=== PATIENT | male | born 1965 | race Asian ===

== ENCOUNTER 2017-09-03 22:08 | Inpatient (IN) | payer OTHER ==
[~2017-09-03] VITALS: Ht 177.8 cm; Wt 76.2 kg
[~2017-09-03 22:08] MED LIST: NORCO
[2017-09-04] MEDS ORDERED: CEFTRIAXONE 1 G PREMIX 50 ML IV ONE (00:45)
[2017-09-04] MEDS ORDERED: SODIUM CHLORIDE 0.9% 1000ML BAG (SEPSIS BOLUS) IV ONE (00:45)
[2017-09-04] MEDS ORDERED: KETOROLAC 15MG/ML VIAL IV ONE (01:00)
[2017-09-04 01:19] LABS: BASOPHILS % 0.5 % (0.0-2.0); EOSINOPHILS % 0.7 % (0.0-5.0); HEMATOCRIT. 30.4 % (42.0-52.0); HEMOGLOBIN. 9.7 g/dL (14.0-18.0); LYMPHOCYTES % 19.6 % (20.0-50.0); MEAN CORPUSCULAR HEMOGLOBIN 24.9 pg (28.0-32.0); MEAN CORPUSCULAR VOLUME 78.3 fL (80.0-94.0); MEAN PLATELET VOLUME 6.5 fl (7.4-10.4); MONOCYTES % 7.4 % (2.0-8.0); NEUTROPHILS % 71.8 % (40.0-76.0); PLATELET 518 x1000/uL (130-400); RED BLOOD CELL COUNT 3.89 mill/uL (4.7-6.1); RED CELL DISTRIBUTION WIDTH 17.4 % (11.6-14.6)
[2017-09-04 01:23] LABS: CHLORIDE 104 mEq/L (98-107)
[2017-09-04 01:24] LABS: INR 1.2
[2017-09-04 01:57] LABS: CLARITY URINE TURBID (CLEAR); COLOR URINE YELLOW (YELLOW); KETONES URINE NEGATIVE (NEGATIVE); LEUKOCYTE ESTERASE URINE 3+ (NEGATIVE); NITRITE URINE POSITIVE (NEGATIVE); OCCULT BLOOD URINE NEGATIVE (NEGATIVE); PH URINE >=9.0 (4.5-8.0); PROTEIN URINE 2+ (NEGATIVE); SPECIFIC GRAVITY URINE 1.022 (1.005-1.030)
[2017-09-04 03:50] VITALS: BP 97/61
[2017-09-04 04:40] VITALS: BP 128/79
[2017-09-04] MEDS ORDERED: PIPERACILLIN/TAZ 3.375G PREMIX 50 ML IV SCH (05:15)
[2017-09-04] MEDS ORDERED: ACETAMINOPHEN 650MG/20.3ML UDC PO PRN (05:15)
[2017-09-04] MEDS ORDERED: ONDANSETRON HCL 4MG/2ML VIAL IV PRN (05:15)
[2017-09-04] MEDS ORDERED: CLONIDINE 0.1MG TABLET PO PRN (05:15)
[2017-09-04] MEDS ORDERED: ONDANSETRON 4MG ODT PO PRN (05:45)
[2017-09-04] MEDS: MORPHINE SULFATE 4 MG/ML CPJ (NOT FOR IM USE) IV PRN ×3 (05:46→19:51)
[2017-09-04] MEDS ORDERED: VANCOMYCIN 1250MG in DEXTROSE 5% WATER 250ML IV SCH (06:00)
[2017-09-04] MEDS: DEXT 5%/0.45% NACL KCL 20MEQ/L 1,000 ML IV SCH ×2 (06:34→18:06)
[2017-09-04] MEDS ORDERED: DIPHENHYDRAMINE 50MG/ML VIAL IM PRN (07:00)
[2017-09-04 08:00] VITALS: BP 102/66
[2017-09-04] MEDS: PIPERACILLIN/TAZ 3.375G PREMIX 50 ML IV SCH ×2 (08:55→15:03)
[2017-09-04] MEDS ORDERED: ENOXAPARIN 40MG/0.4ML SYR SUBCUT SCH (09:00)
[2017-09-04 09:59] LABS: BASOPHILS % 0.7 % (0.0-2.0); EOSINOPHILS % 0.7 % (0.0-5.0); HEMOGLOBIN. 9.2 g/dL (14.0-18.0); LYMPHOCYTES % 19.5 % (20.0-50.0); MEAN CORPUSCULAR HEMOGLOBIN 25.1 pg (28.0-32.0); MEAN CORPUSCULAR VOLUME 79.4 fL (80.0-94.0); MEAN PLATELET VOLUME 6.4 fl (7.4-10.4); MONOCYTES % 5.2 % (2.0-8.0); NEUTROPHILS % 73.9 % (40.0-76.0); PLATELET 446 x1000/uL (130-400); RED BLOOD CELL COUNT 3.65 mill/uL (4.7-6.1); RED CELL DISTRIBUTION WIDTH 16.9 % (11.6-14.6)
[2017-09-04 10:46] LABS: CHLORIDE 110 mEq/L (98-107)
[2017-09-04] MEDS: INSULIN LISPRO 100 UNITS/ML SUBCUT SCH ×2 (12:50→17:50)
[2017-09-04] MEDS: BLOOD SUGAR DIAGNOSTIC STRIP TEST SCH ×2 (12:58→17:54)
[2017-09-04] MEDS ORDERED: HYDROCODONE/ACETAMINOPHEN 5/325MG TABLET PO PRN (13:00)
[2017-09-04] MEDS ORDERED: DEXTROSE 50% WATER 50ML SYRINGE IV PRN (13:00)
[2017-09-04] MEDS ORDERED: ACETAMINOPHEN 325MG TABLET PO PRN (13:00)
[2017-09-04] MEDS ORDERED: SODIUM CHLORIDE 0.9% 100 ML IV ONE (13:30)
[2017-09-04] MEDS ORDERED: SODIUM CHLORIDE 0.9% 1,000 ML IV ONE (13:39)
[2017-09-04] MEDS: MIDODRINE HCL 5MG TABLET PO SCH ×2 (13:48→18:04)
[2017-09-04] MEDS ORDERED: VANCOMYCIN 1 G PREMIX 200 ML IV SCH (14:00)
[2017-09-04 16:00] VITALS: BP 96/52
[2017-09-04 19:57] VITALS: BP 115/60
[2017-09-04 20:03] VITALS: BP 115/60
== END 2017-09-04 20:53 | disposition short-term general hospital (02) | DRG 698 ==
LOC: ER 22:38 → 6EST 09-04 02:07 → EDBEDREQSVC 09-04 02:11 → EDBEDREQ 09-04 02:11 → EDBEDREQTM 09-04 02:11 → ENRESERV 09-04 02:16
PROVIDERS: ADMIT Internal Medicine; ATTEND Internal Medicine
DX: T83.518A Infection and inflammatory reaction due to other urinary catheter, initial encounter (principal); A41.9 Sepsis, unspecified organism; E43 Unspecified severe protein-calorie malnutrition; G82.20 Paraplegia, unspecified; E11.9 Type 2 diabetes mellitus without complications; D64.9 Anemia, unspecified; N12 Tubulo-interstitial nephritis, not specified as acute or chronic; I10 Essential (primary) hypertension; Y83.8 Other surgical procedures as the cause of abnormal reaction of the patient, or of later complication, without mention of misadventure at the time of the procedure; F32.9 Major depressive disorder, single episode, unspecified; Y92.89 Other specified places as the place of occurrence of the external cause; Z79.899 Other long term (current) drug therapy; Z93.3 Colostomy status; Z68.24 Body mass index [BMI] 24.0-24.9, adult
CPT/HCPCS: 36415; 71045; 80048; 80053; 81003; 82962; 83605; 85025; 85610; 85651; 87040; 87086; 87186; 93005; 93970; 96365; 96375; 99285; J0696; J1650; J1885; J2270; J2543; J3370; J7030; J7040; J7060

== ENCOUNTER 2018-02-20 12:06 | Emergency (ER) | payer OTHER ==
[~2018-02-20] VITALS: Ht 175.3 cm; Wt 85.0 kg
[2018-02-20] MEDS ORDERED: MORPHINE SULFATE 4 MG/ML CPJ (NOT FOR IM USE) IV STA (14:42)
[2018-02-20 16:22] LABS: BASOPHILS % 0.6 % (0.0-2.0); EOSINOPHILS % 1.9 % (0.0-5.0); HEMATOCRIT. 40.9 % (42.0-52.0); HEMOGLOBIN. 13.5 g/dL (14.0-18.0); LYMPHOCYTES % 37.8 % (20.0-50.0); MEAN CORPUSCULAR HEMOGLOBIN 28.9 pg (28.0-32.0); MEAN CORPUSCULAR VOLUME 87.5 fL (80.0-94.0); MEAN PLATELET VOLUME 6.9 fl (7.4-10.4); MONOCYTES % 7.7 % (2.0-8.0); PLATELET 293 x1000/uL (130-400); RED BLOOD CELL COUNT 4.67 mill/uL (4.7-6.1); RED CELL DISTRIBUTION WIDTH 16.4 % (11.6-14.6)
[2018-02-20 16:30] LABS: CHLORIDE 105 mEq/L (98-107)
[2018-02-20 17:00] LABS: CLARITY URINE CLEAR (CLEAR); COLOR URINE YELLOW (YELLOW); KETONES URINE NEGATIVE (NEGATIVE); LEUKOCYTE ESTERASE URINE 3+ (NEGATIVE); NITRITE URINE POSITIVE (NEGATIVE); OCCULT BLOOD URINE TRACE (NEGATIVE); PROTEIN URINE NEGATIVE (NEGATIVE); SPECIFIC GRAVITY URINE 1.018 (1.005-1.030); UROBILINOGEN URINE 0.2 E.U./dL (0.2-1.0)
[2018-02-20] MEDS ORDERED: CEFTRIAXONE 1 G PREMIX 50 ML IV ONE (17:15)
[2018-02-20] MEDS ORDERED: MORPHINE SULFATE 4 MG/ML CPJ (NOT FOR IM USE) IV ONE (17:30)
[2018-02-20 20:13] VITALS: BP 105/71
== END 2018-02-20 20:15 | disposition home or self-care (01) ==
LOC: ER 12:06
DX: N39.0 Urinary tract infection, site not specified (principal); Z93.3 Colostomy status
CPT/HCPCS: 36415; 71045; 80053; 81003; 85025; 87077; 87086; 87186; 96365; 96375; 96376; 99285; J0696; J2270

== ENCOUNTER 2018-03-07 19:44 | Inpatient (IN) | payer OTHER ==
[~2018-03-07] VITALS: Ht 175.3 cm; Wt 70.8 kg
[2018-03-07] MEDS ORDERED: PIPERACILLIN/TAZ 3.375G PREMIX 50 ML IV ONE (20:45)
[2018-03-07] MEDS ORDERED: VANCOMYCIN 1 G PREMIX 200 ML IV ONE (20:45)
[2018-03-07] MEDS ORDERED: HYDROCODONE/ACETAMINOPHEN 5/325MG TABLET PO ONE (20:45)
[2018-03-07] MEDS ORDERED: SODIUM CHLORIDE 0.9% 1000ML BAG (SEPSIS BOLUS) IV ONE (20:45)
[2018-03-07 21:04] LABS: CHLORIDE 99 mEq/L (98-107)
[2018-03-07 21:14] LABS: CLARITY URINE CLEAR (CLEAR); COLOR URINE YELLOW (YELLOW); KETONES URINE NEGATIVE (NEGATIVE); LEUKOCYTE ESTERASE URINE 3+ (NEGATIVE); NITRITE URINE POSITIVE (NEGATIVE); OCCULT BLOOD URINE NEGATIVE (NEGATIVE); PH URINE 8.5 (4.5-8.0); PROTEIN URINE NEGATIVE (NEGATIVE); SPECIFIC GRAVITY URINE 1.015 (1.005-1.030)
[2018-03-07 22:08] LABS: BASOPHILS % 0.1 % (0.0-2.0); EOSINOPHILS % 0.1 % (0.0-5.0); HEMATOCRIT. 41.7 % (42.0-52.0); HEMOGLOBIN. 13.8 g/dL (14.0-18.0); LYMPHOCYTES % 12.1 % (20.0-50.0); MEAN CORPUSCULAR HEMOGLOBIN 29.1 pg (28.0-32.0); MEAN CORPUSCULAR VOLUME 87.7 fL (80.0-94.0); MEAN PLATELET VOLUME 6.9 fl (7.4-10.4); MONOCYTES % 3.4 % (2.0-8.0); NEUTROPHILS % 84.3 % (40.0-76.0); PLATELET 380 x1000/uL (130-400); RED BLOOD CELL COUNT 4.76 mill/uL (4.7-6.1); RED CELL DISTRIBUTION WIDTH 15.2 % (11.6-14.6)
[2018-03-08] VITALS: BP 98/68
[2018-03-08] MEDS ORDERED: GUAIFENESIN 200MG/10ML SUGAR FREE UDC PO PRN (01:45)
[2018-03-08] MEDS ORDERED: MAGNESIUM/ALUMINUM HYDROXIDE/SIMETHICONE 30ML UDC PO PRN (01:45)
[2018-03-08] MEDS ORDERED: ACETAMINOPHEN 325MG TABLET PO PRN (01:45)
[2018-03-08] MEDS ORDERED: LORAZEPAM 2MG/ML CPJ IV PRN (01:45)
[2018-03-08] MEDS ORDERED: NA PHOS,M-B/NA PHOS,DI-BA ENEMA 118ML PR PRN (01:45)
[2018-03-08] MEDS ORDERED: ONDANSETRON HCL 4MG/2ML INJ IV PRN (01:45)
[2018-03-08] MEDS ORDERED: DOCUSATE SODIUM 100MG CAPSULE PO PRN (01:45)
[2018-03-08] MEDS ORDERED: DIPHENHYDRAMINE 50MG/ML VIAL IV PRN (01:45)
[2018-03-08] MEDS ORDERED: VANCOMYCIN 1 G PREMIX 200 ML IV SCH (01:45)
[2018-03-08] MEDS ORDERED: CLONIDINE 0.1MG TABLET PO PRN (01:45)
[2018-03-08] MEDS ORDERED: IPRATROPIUM/ALBUTEROL 0.5-3(2.5)MG/3ML NEB INH PRN (01:45)
[2018-03-08] MEDS ORDERED: HYDROCODONE/ACETAMINOPHEN 10/325MG TABLET PO PRN (01:45)
[2018-03-08] MEDS: HYDROMORPHONE HCL/PF 2MG/ML CPJ IV PRN ×5 (02:17→20:28)
[2018-03-08] MEDS ORDERED: VANCOMYCIN 1500MG in DEXTROSE 5% WATER 250ML IV SCH (03:00)
[2018-03-08] MEDS: SODIUM CHLORIDE 0.45% 1,000 ML IV SCH ×2 (03:22→15:07)
[2018-03-08] MEDS: SODIUM CHLORIDE 0.9% INJ 3ML FLUSH IVF SCH ×3 (05:48→20:30)
[2018-03-08 05:59] VITALS: BP 100/61
[2018-03-08] MEDS ORDERED: PIPERACILLIN/TAZ 3.375G PREMIX 50 ML IV SCH (06:00)
[2018-03-08] MEDS ORDERED: HYDR-4001 PO (07:27)
[2018-03-08 08:00] VITALS: BP 92/56
[2018-03-08 08:51] LABS: CREATINE KINASE 85 IU/L (39-308)
[2018-03-08 08:52] LABS: CREATINE KINASE MB FRACTION < 1.0 ng/mL (0.5-3.6)
[2018-03-08] MEDS: ENOXAPARIN 40MG/0.4ML SYR SUBCUT SCH (09:05)
[2018-03-08] MEDS: ASPIRIN 81MG EC TABLET PO SCH (09:06)
[2018-03-08 12:00] VITALS: BP 100/58
[2018-03-08] MEDS ORDERED: INFLUENZA VIRUS VACCINE(AFLURIA) 0.5ML SYR IM ONE (12:00)
[2018-03-08] MEDS: PIPERACILLIN/TAZ 3.375G PREMIX 50 ML IV SCH ×2 (12:07→17:19)
[2018-03-08 14:00] VITALS: BP 100/58
[2018-03-08] MEDS: VANCOMYCIN 1250MG in DEXTROSE 5% WATER 250ML IV SCH ×2 (15:06→20:30)
[2018-03-08 16:00] VITALS: BP 108/59
[2018-03-08 17:34] LABS: CREATINE KINASE 121 IU/L (39-308)
[2018-03-08 17:35] LABS: CREATINE KINASE MB FRACTION < 1.0 ng/mL (0.5-3.6)
[2018-03-09] VITALS (8 sets, daily range): BP systolic 87–123; BP diastolic 40–75
[2018-03-09] MEDS: HYDROMORPHONE HCL/PF 2MG/ML CPJ IV PRN ×4 (00:57→20:48)
[2018-03-09] MEDS: PIPERACILLIN/TAZ 3.375G PREMIX 50 ML IV SCH ×3 (00:57→12:55)
[2018-03-09] MEDS: SODIUM CHLORIDE 0.45% 1,000 ML IV SCH (03:58)
[2018-03-09] MEDS: VANCOMYCIN 1250MG in DEXTROSE 5% WATER 250ML IV SCH (04:03)
[2018-03-09 04:22] LABS: CHLORIDE 103 mEq/L (98-107)
[2018-03-09 04:32] LABS: T4 FREE 1.28 ng/dL (0.76-1.46); VANCOMYCIN TROUGH 20.8 ug/mL (5.0-10.0)
[2018-03-09] MEDS: SODIUM CHLORIDE 0.9% INJ 3ML FLUSH IVF SCH ×3 (05:11→22:30)
[2018-03-09 06:22] LABS: BASOPHILS % 0.2 % (0.0-2.0); EOSINOPHILS % 0.6 % (0.0-5.0); HEMATOCRIT. 39.4 % (42.0-52.0); HEMOGLOBIN. 13.1 g/dL (14.0-18.0); LYMPHOCYTES % 15.1 % (20.0-50.0); MEAN CORPUSCULAR HEMOGLOBIN 29.6 pg (28.0-32.0); MEAN CORPUSCULAR VOLUME 88.8 fL (80.0-94.0); MEAN PLATELET VOLUME 7.2 fl (7.4-10.4); MONOCYTES % 4.6 % (2.0-8.0); NEUTROPHILS % 79.5 % (40.0-76.0); PLATELET 331 x1000/uL (130-400); RED BLOOD CELL COUNT 4.44 mill/uL (4.7-6.1); RED CELL DISTRIBUTION WIDTH 15.1 % (11.6-14.6)
[2018-03-09] MEDS: ASPIRIN 81MG EC TABLET PO SCH (10:33)
[2018-03-09] MEDS: ENOXAPARIN 40MG/0.4ML SYR SUBCUT SCH (10:33)
[2018-03-09] MEDS ORDERED: VANCOMYCIN 1 G PREMIX 200 ML IV SCH (16:00)
== END 2018-03-09 23:20 | disposition short-term general hospital (02) | DRG 689 ==
LOC: ER 19:56 → 7WST 21:28 → EDBEDREQ 21:32 → EDBEDREQSVC 21:32 → EDBEDREQTM 21:32 → ENRESERV 22:53
PROVIDERS: ADMIT Internal Medicine; ATTEND Internal Medicine
DX: N39.0 Urinary tract infection, site not specified (principal); L89.224 Pressure ulcer of left hip, stage 4; L89.214 Pressure ulcer of right hip, stage 4; G82.20 Paraplegia, unspecified; E46 Unspecified protein-calorie malnutrition; B96.89 Other specified bacterial agents as the cause of diseases classified elsewhere; Z68.23 Body mass index [BMI] 23.0-23.9, adult
CPT/HCPCS: 36415; 71045; 80048; 80202; 82550; 82553; 83605; 84134; 84145; 84439; 84443; 84484; 87077; 87186; 90686; 93005; 96365; 97162; 97166; 99291; J1170; J1650; J2543; J3370; J7030; J7060

== ENCOUNTER 2021-09-21 21:43 | Emergency (ER) | payer OTHER ==
[~2021-09-21] VITALS: Ht 180.3 cm; Wt 95.0 kg
[~2021-09-21 21:43] MED LIST changes: +HYDR-4001 PO; -NORCO
[2021-09-22] MEDS ORDERED: CEFTRIAXONE 1 G PREMIX 50 ML IV ONE
[2021-09-22] MEDS ORDERED: SODIUM CHLORIDE 0.9% 1,000 ML IV ONE
[2021-09-22 00:53] LABS: BASOPHILS % 0.6 % (0.0-2.0); EOSINOPHILS % 10.9 % (0.0-5.0); HEMATOCRIT. 26.4 % (42.0-52.0); HEMOGLOBIN. 7.8 g/dL (14.0-18.0); MEAN CORPUSCULAR HEMOGLOBIN 20.5 pg (28.0-32.0); MEAN CORPUSCULAR VOLUME 69.6 fL (80.0-94.0); MEAN PLATELET VOLUME 6.5 fl (7.4-10.4); MONOCYTES % 6.3 % (2.0-8.0); NEUTROPHILS % 63.2 % (40.0-76.0); PLATELET 759 x1000/uL (130-400); RED BLOOD CELL COUNT 3.79 mill/uL (4.7-6.1); RED CELL DISTRIBUTION WIDTH 19.3 % (11.6-14.6)
[2021-09-22 01:04] LABS: CHLORIDE 104 mEq/L (98-107)
[2021-09-22 01:09] LABS: PLATELET ESTIMATE MARKEDLY INCREASED
[2021-09-22 03:52] LABS: CLARITY URINE CLOUDY (CLEAR); COLOR URINE YELLOW (YELLOW); KETONES URINE TRACE (NEGATIVE); LEUKOCYTE ESTERASE URINE 2+ (NEGATIVE); NITRITE URINE POSITIVE (NEGATIVE); OCCULT BLOOD URINE NEGATIVE (NEGATIVE); PH URINE 8.5 (4.5-8.0); PROTEIN URINE 2+ (NEGATIVE); SPECIFIC GRAVITY URINE 1.018 (1.005-1.030); UROBILINOGEN URINE 0.2 E.U./dL (0.2-1.0)
[2021-09-22] MEDS ORDERED: CEPH500C2 MT (05:20)
[2021-09-22] MEDS ORDERED: IBUP-2029 MT (05:20)
[2021-09-22] MEDS ORDERED: MORPHINE SULFATE 4 MG/ML CPJ (NOT FOR IM USE) IV ONE (05:30)
[2021-09-22 08:40] VITALS: BP 115/76
== END 2021-09-22 09:00 | disposition home or self-care (01) ==
LOC: ER 21:43
DX: N39.0 Urinary tract infection, site not specified (principal); G82.20 Paraplegia, unspecified; Z20.822 Contact with and (suspected) exposure to COVID-19; Z93.3 Colostomy status; Z87.828 Personal history of other (healed) physical injury and trauma
CPT/HCPCS: 36415; 71045; 74176; 80053; 81003; 83605; 84145; 85025; 87040; 87086; 87426; 96365; 96375; 99285; C9803; J0696; J2270; J7030

== ENCOUNTER 2022-09-29 13:45 | Emergency (ER) | payer OTHER ==
[~2022-09-29] VITALS: Ht 170.2 cm; Wt 109.0 kg
[~2022-09-29 13:45] MED LIST changes: +CEPH500C2 MT; +IBUP-2029 MT
[2022-09-29 13:52] VITALS: O2SAT 95
[2022-09-29] MEDS ORDERED: ONDANSETRON HCL 4MG/2ML INJ IV STA ×2 (14:10→20:41)
[2022-09-29] MEDS ORDERED: MORPHINE SULFATE 4 MG/ML CPJ (NOT FOR IM USE) IV STA ×2 (14:10→20:41)
[2022-09-29] MEDS ORDERED: SODIUM CHLORIDE 0.9% 1,000 ML IV ONE (14:15)
[2022-09-29 15:58] LABS: BASOPHILS % 0.2 % (0.0-2.0); EOSINOPHILS % 0.3 % (0.0-5.0); HEMOGLOBIN. 14.1 g/dL (14.0-18.0); LYMPHOCYTES % 18.2 % (20.0-50.0); MEAN CORPUSCULAR HEMOGLOBIN 29.5 pg (28.0-32.0); MEAN CORPUSCULAR VOLUME 87.9 fL (80.0-94.0); MONOCYTES % 6.7 % (2.0-8.0); NEUTROPHILS % 74.6 % (40.0-76.0); PLATELET 344 x1000/uL (130-400); RED BLOOD CELL COUNT 4.77 mill/uL (4.7-6.1); RED CELL DISTRIBUTION WIDTH 14.5 % (11.6-14.6)
[2022-09-29 16:06] LABS: CHLORIDE 109 mEq/L (98-107)
[2022-09-29 16:22] LABS: PARTIAL THROMBOPLASTIN TIME 30.7 sec (23.4-31.0)
[2022-09-29 16:30] LABS: CLARITY URINE TURBID (CLEAR); COLOR URINE YELLOW (YELLOW); KETONES URINE TRACE (NEGATIVE); LEUKOCYTE ESTERASE URINE 3+ (NEGATIVE); NITRITE URINE NEGATIVE (NEGATIVE); OCCULT BLOOD URINE NEGATIVE (NEGATIVE); PH URINE >=9.0 (4.5-8.0); PROTEIN URINE 2+ (NEGATIVE); SPECIFIC GRAVITY URINE 1.024 (1.005-1.030)
[2022-09-29] MEDS ORDERED: PIPERACILLIN/TAZ 3.375G PREMIX 50 ML IV ONE (17:00)
[2022-09-29 20:37] VITALS: TEMP 98.5
[2022-09-29 20:50] VITALS: BP 139/79; PULSE 81; RESP 14
== END 2022-09-29 21:10 | disposition short-term general hospital (02) ==
LOC: ER 14:23
DX: N39.0 Urinary tract infection, site not specified (principal); Z98.890 Other specified postprocedural states
CPT/HCPCS: 36415; 71045; 74176; 76705; 80053; 81003; 83690; 83880; 84484; 85025; 85610; 85730; 86850; 86900; 86901; 87086; 93005; 96365; 96375; 96376; 99285; J2270; J2405; J2543; J7030; Z7610

== ENCOUNTER 2022-12-11 20:08 | Emergency (ER) | payer OTHER ==
[~2022-12-11] VITALS: Ht 175.3 cm; Wt 82.0 kg
[2022-12-11 20:13] VITALS: TEMP 98.7; O2SAT 97
[2022-12-11] MEDS ORDERED: MORPHINE SULFATE 4 MG/ML CPJ (NOT FOR IM USE) IV STA (20:51)
[2022-12-11] MEDS ORDERED: ONDANSETRON HCL 4MG/2ML INJ IV STA (20:51)
[2022-12-11] MEDS ORDERED: SODIUM CHLORIDE 0.9% 1,000 ML IV ONE (21:00)
[2022-12-11 21:45] LABS: BASOPHILS % 0.5 % (0.0-2.0); EOSINOPHILS % 1.1 % (0.0-5.0); HEMATOCRIT. 39.3 % (42.0-52.0); HEMOGLOBIN. 13.4 g/dL (14.0-18.0); LYMPHOCYTES % 16.7 % (20.0-50.0); MEAN CORPUSCULAR HEMOGLOBIN 29.6 pg (28.0-32.0); MEAN CORPUSCULAR HGB CONC 34.2 g/dL (31.0-37.0); MEAN CORPUSCULAR VOLUME 86.8 fL (80.0-94.0); MEAN PLATELET VOLUME 6.7 fl (7.4-10.4); MONOCYTES % 9.7 % (2.0-8.0); PLATELET 451 x1000/uL (130-400); RED BLOOD CELL COUNT 4.53 mill/uL (4.7-6.1); RED CELL DISTRIBUTION WIDTH 14.3 % (11.6-14.6); WHITE BLOOD COUNT 9.8 x1000/uL (4.5-11.0)
[2022-12-11 21:59] LABS: CHLORIDE 100 mEq/L (98-107); INDEX HEMOLYSI 1 (1-3); INDEX ICTERIC 1 (1-4); INDEX LIPEMIC 1 (1-3); POTASSIUM 3.8 mEq/L (3.5-5.1); SODIUM 133 mEq/L (136-145)
[2022-12-11 22:11] LABS: ALANINE AMINOTRANSFERASE 17 IU/L (13-61); ALBUMIN 3.5 g/dL (3.4-5.0); ASPARTATE AMINOTRANSFERASE 15 IU/L (15-37); BILIRUBIN TOTAL 0.5 mg/dL (0.1-1.0); CALCIUM 8.9 mg/dL (8.5-10.1); CARBON DIOXIDE 28 mEq/L (21-32); CREATININE 0.5 mg/dL (0.6-1.3); GLUCOSE 83 mg/dL (70-105); PROTEIN TOTAL 9.8 g/dL (6.0-8.3); TROPONIN I HIGH SENSITIVITY 5 ng/L (<78); UREA NITROGEN BLOOD 11 mg/dL (7-21)
[2022-12-11 22:33] LABS: CLARITY URINE CLOUDY (CLEAR); COLOR URINE YELLOW (YELLOW); GLUCOSE URINE NEGATIVE (NEGATIVE); KETONES URINE NEGATIVE (NEGATIVE); LEUKOCYTE ESTERASE URINE 3+ (NEGATIVE); NITRITE URINE POSITIVE (NEGATIVE); OCCULT BLOOD URINE NEGATIVE (NEGATIVE); PH URINE 7.5 (4.5-8.0); PROTEIN URINE TRACE (NEGATIVE); SPECIFIC GRAVITY URINE 1.011 (1.005-1.030); UROBILINOGEN URINE 0.2 E.U./dL (0.2-1.0)
[2022-12-11 23:34] LABS: BACTERIA URINE 3+; SQUAMOUS EPITHELIAL CELL URINE FEW /lpf (RARE/1+)
[2022-12-11 23:35] LABS: RBC URINE 0-2 /hpf (0-2)
[2022-12-12] MEDS ORDERED: VANCOMYCIN 1G PREMIX 200 ML IV ONE (00:15)
[2022-12-12] MEDS ORDERED: PIPERACILLIN/TAZ 3.375G PREMIX 50 ML IV ONE (00:15)
[2022-12-12] MEDS ORDERED: SODIUM CHLORIDE 0.9% 1000ML BAG (SEPSIS BOLUS) IV ONE (00:15)
[2022-12-12 02:22] VITALS: BP 116/71; PULSE 85; RESP 15
== END 2022-12-12 02:40 | disposition short-term general hospital (02) ==
LOC: ER 21:46
DX: N39.0 Urinary tract infection, site not specified (principal); T83.518A Infection and inflammatory reaction due to other urinary catheter, initial encounter; Y84.6 Urinary catheterization as the cause of abnormal reaction of the patient, or of later complication, without mention of misadventure at the time of the procedure; Y92.89 Other specified places as the place of occurrence of the external cause
CPT/HCPCS: 80053; 81003; 83690; 85025; 87086; 87186; 84484; 87077; 36415; 71045; 74176; 93005; 96375; 99285; 87040; 96367; 96365; J2405; J2270; J7030 ×2; Z7610; J2543; J3370

== ENCOUNTER 2023-02-13 07:12 | Inpatient (IN) | payer OTHER ==
[~2023-02-13] VITALS: Ht 175.3 cm; Wt 81.6 kg
[2023-02-13] MEDS ORDERED: ONDANSETRON HCL 4MG/2ML INJ IV STA (07:25)
[2023-02-13] MEDS ORDERED: MORPHINE SULFATE 4 MG/ML CPJ (NOT FOR IM USE) IV STA (07:25)
[2023-02-13] MEDS ORDERED: SODIUM CHLORIDE 0.9% 1,000 ML IV ONE (07:30)
[2023-02-13 08:22] LABS: BASOPHILS % 0.2 % (0.0-2.0); EOSINOPHILS % 0.5 % (0.0-5.0); HEMATOCRIT. 44.1 % (42.0-52.0); HEMOGLOBIN. 14.6 g/dL (14.0-18.0); LYMPHOCYTES % 11.9 % (20.0-50.0); MEAN CORPUSCULAR HEMOGLOBIN 29.2 pg (28.0-32.0); MEAN CORPUSCULAR HGB CONC 33.1 g/dL (31.0-37.0); MEAN CORPUSCULAR VOLUME 88.2 fL (80.0-94.0); MONOCYTES % 6.6 % (2.0-8.0); NEUTROPHILS % 80.8 % (40.0-76.0); RED BLOOD CELL COUNT 5.01 mill/uL (4.7-6.1); WHITE BLOOD COUNT 10.2 x1000/uL (4.5-11.0)
[2023-02-13 08:24] LABS: PROTHROMBIN TIME 10.7 sec (9.6-11.0)
[2023-02-13 08:27] LABS: CHLORIDE 100 mEq/L (98-107); INDEX HEMOLYSI 1 (1-3); INDEX ICTERIC 1 (1-4); INDEX LIPEMIC 1 (1-3); POTASSIUM 3.9 mEq/L (3.5-5.1); SODIUM 134 mEq/L (136-145)
[2023-02-13 08:36] LABS: ALANINE AMINOTRANSFERASE 24 IU/L (13-61); ALBUMIN 3.5 g/dL (3.4-5.0); ASPARTATE AMINOTRANSFERASE 22 IU/L (15-37); BILIRUBIN TOTAL 0.5 mg/dL (0.1-1.0); CALCIUM 8.4 mg/dL (8.5-10.1); CARBON DIOXIDE 28 mEq/L (21-32); CREATININE 0.7 mg/dL (0.6-1.3); ETHANOL BLOOD < 10 mg/dL (<10); GLUCOSE 134 mg/dL (70-105); PROTEIN TOTAL 9.6 g/dL (6.0-8.3); UREA NITROGEN BLOOD 17 mg/dL (7-21)
[2023-02-13 08:42] LABS: DIFFERENTIAL COMMENT 1; RED CELL DISTRIBUTION WIDTH 15.9 % (11.6-14.6)
[2023-02-13 09:29] LABS: MEAN PLATELET VOLUME 7.3 fl (7.4-10.4); PLATELET 413 x1000/uL (130-400)
[2023-02-13 10:24] LABS: CLARITY URINE TURBID (CLEAR); COLOR URINE DARK YELLOW (YELLOW); GLUCOSE URINE NEGATIVE (NEGATIVE); KETONES URINE TRACE (NEGATIVE); LEUKOCYTE ESTERASE URINE 3+ (NEGATIVE); NITRITE URINE POSITIVE (NEGATIVE); OCCULT BLOOD URINE NEGATIVE (NEGATIVE); PH URINE >=9.0 (4.5-8.0); PROTEIN URINE 2+ (NEGATIVE); SPECIFIC GRAVITY URINE 1.029 (1.005-1.030)
[2023-02-13] MEDS ORDERED: CLONIDINE 0.1MG TABLET PO PRN (10:45)
[2023-02-13] MEDS ORDERED: MAGNESIUM/ALUMINUM HYDROXIDE/SIMETHICONE 30ML UDC PO PRN (10:45)
[2023-02-13] MEDS ORDERED: GUAIFENESIN 200MG/10ML SUGAR FREE UDC PO PRN (10:45)
[2023-02-13] MEDS ORDERED: ONDANSETRON HCL 4MG/2ML INJ IV PRN (10:45)
[2023-02-13] MEDS ORDERED: IPRATROPIUM/ALBUTEROL 0.5-3(2.5)MG/3ML NEB HHN PRN (10:45)
[2023-02-13] MEDS ORDERED: ACETAMINOPHEN 325MG TABLET PO PRN ×2 (10:45)
[2023-02-13] MEDS ORDERED: DOCUSATE SODIUM 100MG CAPSULE PO PRN (10:45)
[2023-02-13] MEDS ORDERED: ENOXAPARIN 30MG/0.3ML SYR SUBCUT SCH ×2 (11:00→18:00)
[2023-02-13] MEDS ORDERED: PIPERACILLIN/TAZ 3.375G PREMIX 50 ML IV NR (11:00)
[2023-02-13] MEDS ORDERED: MORPHINE SULFATE 4 MG/ML CPJ (NOT FOR IM USE) IV NR (11:00)
[2023-02-13] MEDS ORDERED: ONDANSETRON HCL 4MG/2ML INJ IV NR (11:00)
[2023-02-13 11:36] LABS: *AMPHETAMINES SCREEN URINE NEGATIVE (NEGATIVE); *BARBITURATES SCREEN URINE NEGATIVE (NEGATIVE); *BENZODIAZEPINES SCREEN URINE NEGATIVE (NEGATIVE); *COCAINE SCREEN URINE NEGATIVE (NEGATIVE); CANNABINOID URINE SCREEN NEGATIVE (NEGATIVE); ECSTASY MDMA SCREEN URINE NEGATIVE (NEGATIVE); METHADONE URINE SCREEN NEGATIVE (NEGATIVE); OPIATES URINE SCREEN PRESUMTIVE POSITIVE (NEGATIVE); PHENCYCLIDINE URINE SCREEN NEGATIVE (NEGATIVE)
[2023-02-13 11:39] LABS: BACTERIA URINE 4+
[2023-02-13 11:40] LABS: RBC URINE 0-2 /hpf (0-2); SQUAMOUS EPITHELIAL CELL URINE NONE SEEN /lpf (RARE/1+); YEAST URINE NONE SEEN
[2023-02-13 11:41] LABS: TRIPLE PHOSPHATE CRYSTAL URINE 2+ /lpf
[2023-02-13] MEDS ORDERED: DEXTROSE 50% WATER 50ML SYRINGE IV PRN (12:00)
[2023-02-13] MEDS: BLOOD SUGAR DIAGNOSTIC STRIP TEST SCH ×3 (12:20→21:37)
[2023-02-13] MEDS: INSULIN LISPRO 100 UNITS/ML SUBCUT SCH ×3 (12:50→21:00)
[2023-02-13] MEDS ORDERED: VANCOMYCIN 2,000 MG in DEXT 5% WATER 500 ML IV NR (15:00)
[2023-02-13] MEDS: SODIUM CHLORIDE 0.9% 1,000 ML IV SCH ×2 (15:25→20:45)
[2023-02-13 15:37] VITALS: BP 127/85; PULSE 86; RESP 18; TEMP 98.1
[2023-02-13] MEDS ORDERED: INFLUENZA VACCINE 05/PF 0.5 ML SYRINGE IM ONE (15:45)
[2023-02-13] MEDS ORDERED: ACETAMINOPHEN 650MG SUPP PR PRN (15:45)
[2023-02-13] MEDS: KETOROLAC 15MG/ML VIAL IV PRN ×2 (16:53→21:54)
[2023-02-13] MEDS: PIPERACILLIN/TAZOBACTAM 3.375 G in DEXTROSE 5% WATER 50 ML IV SCH (17:46)
[2023-02-13 20:00] VITALS: BP 106/66; PULSE 81; RESP 18; TEMP 98.7
[2023-02-13] MEDS ORDERED: PIPERACILLIN/TAZOBACTAM 3.375 G in DEXTROSE 5% WATER 50 ML IV SCH (21:00)
[2023-02-14] VITALS (7 sets, daily range): BP systolic 101–150; BP diastolic 61–80; PULSE 70–85; RESP 18–20; TEMP 97.4–99.3; O2SAT 96
[2023-02-14] MEDS: VANCOMYCIN 1.25GM PMX (XELLIA) 250 ML IV SCH ×2 (03:33→14:54)
[2023-02-14 06:49] LABS: CHLORIDE 106 mEq/L (98-107); INDEX HEMOLYSI 1 (1-3); INDEX ICTERIC 1 (1-4); INDEX LIPEMIC 1 (1-3); POTASSIUM 3.6 mEq/L (3.5-5.1); SODIUM 135 mEq/L (136-145)
[2023-02-14 07:06] LABS: BASOPHILS % 0.2 % (0.0-2.0); EOSINOPHILS % 0.8 % (0.0-5.0); HEMATOCRIT. 35.1 % (42.0-52.0); HEMOGLOBIN. 11.6 g/dL (14.0-18.0); LYMPHOCYTES % 13.4 % (20.0-50.0); MEAN CORPUSCULAR HEMOGLOBIN 28.9 pg (28.0-32.0); MEAN CORPUSCULAR VOLUME 87.6 fL (80.0-94.0); MEAN PLATELET VOLUME 7.4 fl (7.4-10.4); MONOCYTES % 7.9 % (2.0-8.0); NEUTROPHILS % 77.7 % (40.0-76.0); PLATELET 306 x1000/uL (130-400); RED CELL DISTRIBUTION WIDTH 15.5 % (11.6-14.6); WHITE BLOOD COUNT 6.3 x1000/uL (4.5-11.0)
[2023-02-14 07:14] LABS: ALANINE AMINOTRANSFERASE 19 IU/L (13-61); ALBUMIN 2.7 g/dL (3.4-5.0); ASPARTATE AMINOTRANSFERASE 21 IU/L (15-37); BILIRUBIN TOTAL 0.7 mg/dL (0.1-1.0); CALCIUM 7.3 mg/dL (8.5-10.1); CARBON DIOXIDE 23 mEq/L (21-32); CHOLESTEROL 105 mg/dL (<200); CREATININE 0.6 mg/dL (0.6-1.3); GLUCOSE 98 mg/dL (70-105); HDL CHOLESTEROL 39 mg/dL (40-59); LDL CHOLESTEROL 69 mg/dL (5-100); PROTEIN TOTAL 7.6 g/dL (6.0-8.3); T4 FREE 1.31 ng/dL (0.76-1.46); THYROID STIMULATING HORMONE 0.51 uIU/mL (0.36-3.74); TRIGLYCERIDE 63 mg/dL (0-150); UREA NITROGEN BLOOD 17 mg/dL (7-21)
[2023-02-14] MEDS: BLOOD SUGAR DIAGNOSTIC STRIP TEST SCH ×3 (07:27→17:29)
[2023-02-14] MEDS: INSULIN LISPRO 100 UNITS/ML SUBCUT SCH ×2 (07:27→12:29)
[2023-02-14] MEDS: PIPERACILLIN/TAZOBACTAM 3.375 G in DEXTROSE 5% WATER 50 ML IV SCH ×3 (08:12)
[2023-02-14] MEDS: SODIUM CHLORIDE 0.9% 1,000 ML IV SCH ×2 (08:12→17:29)
[2023-02-14] MEDS: KETOROLAC 15MG/ML VIAL IV PRN ×2 (08:13→14:36)
[2023-02-14] MEDS ORDERED: PIPERACILLIN/TAZOBACTAM 3.375 G in DEXTROSE 5% WATER 50 ML IV SCH (15:00)
[2023-02-14] MEDS ORDERED: ENOXAPARIN 40MG/0.4ML SYR SUBCUT SCH (18:00)
== END 2023-02-14 20:53 | disposition short-term general hospital (02) | DRG 871 ==
LOC: ER 07:12 → 6EST 09:53 → EDBEDREQ 09:58 → EDBEDREQTM 09:58
PROVIDERS: ADMIT Internal Medicine; ATTEND Internal Medicine
DX: A41.9 Sepsis, unspecified organism (principal); L89.144 Pressure ulcer of left lower back, stage 4; K56.609 Unspecified intestinal obstruction, unspecified as to partial versus complete obstruction; G82.20 Paraplegia, unspecified; M86.60 Other chronic osteomyelitis, unspecified site; L97.821 Non-pressure chronic ulcer of other part of left lower leg limited to breakdown of skin; E46 Unspecified protein-calorie malnutrition; J44.9 Chronic obstructive pulmonary disease, unspecified; L89.319 Pressure ulcer of right buttock, unspecified stage; L89.159 Pressure ulcer of sacral region, unspecified stage; E78.00 Pure hypercholesterolemia, unspecified; K80.20 Calculus of gallbladder without cholecystitis without obstruction; N28.1 Cyst of kidney, acquired; M24.575 Contracture, left foot; M24.574 Contracture, right foot; Z74.01 Bed confinement status; Z93.3 Colostomy status; Z68.26 Body mass index [BMI] 26.0-26.9, adult
CPT/HCPCS: 36415; 71045; 74018; 74176; 80053; 80061; 80305; 80320; 81003; 82962; 83036; 83605; 84145; 84439; 84443; 84481; 85025; 86850; 86900; 87077; 87186; 93005; 93306; 99285; J1650; J1815; J1885; J2270; J2405; J2543; J3370; J7030; J7060; G0480

== ENCOUNTER 2023-05-30 15:28 | Emergency (ER) | payer OTHER ==
[~2023-05-30] VITALS: Ht 172.7 cm; Wt 67.0 kg
[2023-05-30 16:09] LABS: CLARITY URINE TURBID (CLEAR); COLOR URINE YELLOW (YELLOW); GLUCOSE URINE NEGATIVE (NEGATIVE); KETONES URINE 2+ (NEGATIVE); LEUKOCYTE ESTERASE URINE 3+ (NEGATIVE); NITRITE URINE POSITIVE (NEGATIVE); OCCULT BLOOD URINE NEGATIVE (NEGATIVE); PROTEIN URINE TRACE (NEGATIVE); SPECIFIC GRAVITY URINE 1.012 (1.005-1.030)
[2023-05-30] MEDS: SODIUM CHLORIDE 0.9% 1000ML BAG (SEPSIS BOLUS) IV ONE (16:27)
[2023-05-30 16:30] LABS: BACTERIA URINE 4+; RBC URINE 0-2 /hpf (0-2); SQUAMOUS EPITHELIAL CELL URINE FEW /lpf (RARE/1+)
[2023-05-30 16:31] LABS: WBC URINE 50-100 /hpf (0-2)
[2023-05-30 16:32] LABS: TRIPLE PHOSPHATE CRYSTAL URINE 1+ /lpf
[2023-05-30 16:41] LABS: BASOPHILS % 0.6 % (0.0-2.0); EOSINOPHILS % 0.4 % (0.0-5.0); HEMATOCRIT. 33.9 % (42.0-52.0); HEMOGLOBIN. 10.9 g/dL (14.0-18.0); LYMPHOCYTES % 12.1 % (20.0-50.0); MEAN CORPUSCULAR HEMOGLOBIN 28.1 pg (28.0-32.0); MEAN CORPUSCULAR HGB CONC 32.1 g/dL (31.0-37.0); MEAN CORPUSCULAR VOLUME 87.5 fL (80.0-94.0); MEAN PLATELET VOLUME 6.2 fl (7.4-10.4); MONOCYTES % 7.8 % (2.0-8.0); NEUTROPHILS % 79.1 % (40.0-76.0); PLATELET 668 x1000/uL (130-400); RED BLOOD CELL COUNT 3.88 mill/uL (4.7-6.1); RED CELL DISTRIBUTION WIDTH 15.8 % (11.6-14.6); WHITE BLOOD COUNT 12.1 x1000/uL (4.5-11.0)
[2023-05-30] MEDS: IPRATROPIUM BROMIDE (0.02%) 0.5MG/2.5ML NEB HHN STA (16:43)
[2023-05-30 16:47] LABS: INR 1.1; PROTHROMBIN TIME 11.8 sec (9.6-11.0)
[2023-05-30] MEDS: METHYLPREDNISOLONE SOD SUCC 125MG/2ML (ACT-O-VIAL) IV STA (16:49)
[2023-05-30] MEDS: MORPHINE SULFATE 4 MG/ML CPJ (NOT FOR IM USE) IV ONE ×2 (16:49→21:13)
[2023-05-30] MEDS: ONDANSETRON HCL 4MG/2ML INJ IV ONE (16:50)
[2023-05-30 17:05] LABS: ALANINE AMINOTRANSFERASE 17 IU/L (10-49); ALBUMIN 3.8 g/dL (3.2-4.8); ASPARTATE AMINOTRANSFERASE 26 IU/L (<34); BILIRUBIN TOTAL 0.5 mg/dL (0.1-1.0); CALCIUM 8.8 mg/dL (8.7-10.4); CARBON DIOXIDE 24 mEq/L (21-32); CHLORIDE 99 mEq/L (98-107); CREATINE KINASE 79 IU/L (46-171); CREATININE 0.6 mg/dL (0.6-1.3); GLUCOSE 92 mg/dL (70-105); LACTATE DEHYDROGENASE 229 IU/L (120-246); SODIUM 131 mEq/L (136-145); UREA NITROGEN BLOOD 7 mg/dL (9-23)
[2023-05-30 17:08] LABS: TROPONIN I HIGH SENSITIVITY < 4 ng/L (3.0-53)
[2023-05-30 17:15] VITALS: PULSE 81; RESP 20; O2SAT 92
[2023-05-30] MEDS: ALBUTEROL (0.083%) 2.5MG/3ML NEB HHN SCH (17:50)
[2023-05-30 18:15] VITALS: PULSE 102; RESP 20; O2SAT 100
[2023-05-30] MEDS: CEFEPIME 2,000 MG in DEXT 5% WATER 100 ML IV ONE (19:19)
[2023-05-31] MEDS: VANCOMYCIN 1G PREMIX 200 ML IV NR (00:01)
[2023-05-31 00:50] VITALS: BP 154/60; PULSE 60; RESP 20; TEMP 99.8
== END 2023-05-31 01:09 | disposition short-term general hospital (02) ==
LOC: ER 16:03
DX: A41.9 Sepsis, unspecified organism (principal); R65.20 Severe sepsis without septic shock; J44.1 Chronic obstructive pulmonary disease with (acute) exacerbation; L89.90 Pressure ulcer of unspecified site, unspecified stage; E78.00 Pure hypercholesterolemia, unspecified; Z98.890 Other specified postprocedural states
CPT/HCPCS: 80053; 81003; 82550; 83880; 83605; 83615; 83690; 85025; 85610; 87040; 87086; 84484; 87804 ×2; 36415; 84145; 71045; 74176; 94640; 93005; 96361; 96365; 96366; 96375; 96376 ×2; 99291; J0692; J2930; J2405; J3370; J2270; Z7610 ×8; J7060; J7030

== ENCOUNTER 2023-12-24 20:21 | Emergency (ER) | payer OTHER ==
[~2023-12-24] VITALS: Ht 182.9 cm; Wt 82.0 kg
[2023-12-24 20:25] VITALS: O2SAT 98
[2023-12-24 21:31] LABS: BASOPHILS % 0.6 % (0.0-2.0); EOSINOPHILS % 4.8 % (0.0-5.0); HEMATOCRIT. 30.7 % (42.0-52.0); HEMOGLOBIN. 9.6 g/dL (14.0-18.0); LYMPHOCYTES % 21.1 % (20.0-50.0); MEAN CORPUSCULAR HEMOGLOBIN 25.7 pg (28.0-32.0); MEAN CORPUSCULAR HGB CONC 31.3 g/dL (31.0-37.0); MEAN CORPUSCULAR VOLUME 82.2 fL (80.0-94.0); MEAN PLATELET VOLUME 6.8 fl (7.4-10.4); MONOCYTES % 6.4 % (2.0-8.0); NEUTROPHILS % 67.1 % (40.0-76.0); PLATELET 493 x1000/uL (130-400); RED BLOOD CELL COUNT 3.74 mill/uL (4.7-6.1); RED CELL DISTRIBUTION WIDTH 15.1 % (11.6-14.6); WHITE BLOOD COUNT 8.6 x1000/uL (4.5-11.0)
[2023-12-24 21:38] LABS: CHLORIDE 107 mEq/L (98-107); POTASSIUM 3.5 mEq/L (3.5-5.1); SODIUM 137 mEq/L (136-145)
[2023-12-24 21:39] LABS: CALCIUM 8.5 mg/dL (8.7-10.4); CARBON DIOXIDE 24 mEq/L (21-32)
[2023-12-24 21:44] LABS: CREATININE 0.7 mg/dL (0.6-1.3); GLUCOSE 124 mg/dL (70-105); UREA NITROGEN BLOOD 7 mg/dL (9-23)
[2023-12-24 21:46] LABS: TROPONIN I HIGH SENSITIVITY < 4 ng/L (3.0-53)
[2023-12-24 21:52] LABS: PROTHROMBIN TIME 11.3 sec (9.6-11.0)
[2023-12-24] MEDS: CEFTRIAXONE 1GM/50ML 50 ML IV ONE (22:38)
[2023-12-24] MEDS: SODIUM CHLORIDE 0.9% 1000ML BAG (SEPSIS BOLUS) IV ONE (22:38)
[2023-12-24] MEDS: HYDROCODONE/ACETAMINOPHEN 5/325MG TABLET PO ONE (22:55)
[2023-12-25 00:22] LABS: CLARITY URINE TURBID (CLEAR); COLOR URINE RED (YELLOW); GLUCOSE URINE NEGATIVE (NEGATIVE); KETONES URINE TRACE (NEGATIVE); LEUKOCYTE ESTERASE URINE 2+ (NEGATIVE); NITRITE URINE NEGATIVE (NEGATIVE); OCCULT BLOOD URINE 3+ (NEGATIVE); PROTEIN URINE 1+ (NEGATIVE); SPECIFIC GRAVITY URINE 1.016 (1.005-1.030)
[2023-12-25] MEDS: MORPHINE SULFATE 4 MG/ML INJ (FOR IV/IM USE) IV ONE (00:43)
[2023-12-25] MEDS: ONDANSETRON HCL 4MG/2ML INJ IV ONE (00:43)
[2023-12-25 01:40] VITALS: BP 120/75; PULSE 102; RESP 16; TEMP 37.00296; O2SAT 98
[2023-12-25 03:55] LABS: RBC URINE TNTC /hpf (0-2)
[2023-12-25 03:57] LABS: BACTERIA URINE 1+; SQUAMOUS EPITHELIAL CELL URINE FEW /lpf (RARE/1+)
== END 2023-12-25 01:59 | disposition short-term general hospital (02) ==
LOC: ER 20:21
DX: R30.0 Dysuria (principal); E78.00 Pure hypercholesterolemia, unspecified; Z87.440 Personal history of urinary (tract) infections; Z79.899 Other long term (current) drug therapy
CPT/HCPCS: 80048; 81003; 83605; 85025; 85610; 87040; 87086; 84484; 36415; 84145; 71045; 93005; 96365; 96366; 99285; 96375; J0696; J7030; Z7610; J2405; J2270

== ENCOUNTER 2024-04-20 05:33 | Emergency (ER) | payer OTHER ==
[~2024-04-20] VITALS: Ht 177.8 cm; Wt 93.0 kg
[2024-04-20 05:35] VITALS: O2SAT 98
[2024-04-20] MEDS ORDERED: ONDANSETRON HCL 4MG/2ML INJ IV STA (06:09)
[2024-04-20] MEDS ORDERED: MORPHINE SULFATE 4 MG/ML INJ (FOR IV/IM USE) IV STA (06:09)
[2024-04-20 06:44] LABS: INR 0.9; PROTHROMBIN TIME 10.4 sec (9.6-11.0)
[2024-04-20 06:50] LABS: BASOPHILS % 0.6 % (0.0-2.0); DIFFERENTIAL COMMENT 0; HEMATOCRIT. 33.3 % (42.0-52.0); HEMOGLOBIN. 10.3 g/dL (14.0-18.0); LYMPHOCYTES % 19.4 % (20.0-50.0); MEAN CORPUSCULAR HEMOGLOBIN 23.5 pg (28.0-32.0); MEAN CORPUSCULAR VOLUME 75.8 fL (80.0-94.0); MEAN PLATELET VOLUME 6.8 fl (7.4-10.4); MONOCYTES % 3.9 % (2.0-8.0); NEUTROPHILS % 72.1 % (40.0-76.0); PLATELET 645 x1000/uL (130-400); RED BLOOD CELL COUNT 4.39 mill/uL (4.7-6.1); RED CELL DISTRIBUTION WIDTH 17.2 % (11.6-14.6); WHITE BLOOD COUNT 7.6 x1000/uL (4.5-11.0)
[2024-04-20 06:53] LABS: CHLORIDE 102 mEq/L (98-107); POTASSIUM 3.8 mEq/L (3.5-5.1); SODIUM 138 mEq/L (136-145)
[2024-04-20 06:54] LABS: CARBON DIOXIDE 26 mEq/L (21-32)
[2024-04-20 06:55] LABS: CALCIUM 9.5 mg/dL (8.7-10.4)
[2024-04-20 06:59] LABS: CREATININE 0.9 mg/dL (0.6-1.3); GLUCOSE 125 mg/dL (70-105); UREA NITROGEN BLOOD 21 mg/dL (9-23)
[2024-04-20 07:01] LABS: ALANINE AMINOTRANSFERASE 11 IU/L (10-49); ALBUMIN 4.5 g/dL (3.2-4.8); ASPARTATE AMINOTRANSFERASE 18 IU/L (<34)
[2024-04-20 07:02] LABS: BILIRUBIN TOTAL 0.3 mg/dL (0.1-1.0); PROTEIN TOTAL 10.5 g/dL (6.0-8.3)
[2024-04-20 07:03] LABS: BILIRUBIN DIRECT < 0.1 mg/dL (<=3.0)
[2024-04-20] MEDS: MORPHINE SULFATE 4 MG/ML INJ (FOR IV/IM USE) IV NR (09:12)
[2024-04-20] MEDS: SODIUM CHLORIDE 0.9% 1,000 ML IV ONE (09:12)
[2024-04-20] MEDS: ONDANSETRON HCL 4MG/2ML INJ IV NR (09:13)
[2024-04-20 10:53] VITALS: BP 112/55; PULSE 89; RESP 15; TEMP 37.22520; O2SAT 99
[2024-04-20] MEDS: DIATR MEGLU/DIATRIZOATE SOLN 30ML PO ONE (11:30)
== END 2024-04-20 13:31 | disposition short-term general hospital (02) ==
LOC: ER 05:33
DX: K56.609 Unspecified intestinal obstruction, unspecified as to partial versus complete obstruction (principal); E78.00 Pure hypercholesterolemia, unspecified; Z93.3 Colostomy status
CPT/HCPCS: 80076; 80048; 83690; 85025; 85610; 36415; 74176; 96361; 96374; 96375; 99285; J2405; J2270; Q9963; J7030; Z7610 ×2; C1893

== ENCOUNTER 2024-08-29 17:19 | Inpatient (IN) | payer OTHER ==
[~2024-08-29] VITALS: Ht 154.7 cm; Wt 81.7 kg
[2024-08-29 17:28] VITALS: O2SAT 97
[2024-08-29] MEDS: KETOROLAC 30MG/ML VIAL IM STA (18:26)
[2024-08-29 18:27] LABS: BASOPHILS % 0.2 % (0.0-2.0); DIFFERENTIAL COMMENT 0; EOSINOPHILS % 0.3 % (0.0-5.0); HEMATOCRIT. 39.9 % (42.0-52.0); HEMOGLOBIN. 12.7 g/dL (14.0-18.0); MEAN CORPUSCULAR HEMOGLOBIN 24.4 pg (28.0-32.0); MEAN CORPUSCULAR HGB CONC 31.8 g/dL (31.0-37.0); MEAN CORPUSCULAR VOLUME 76.7 fL (80.0-94.0); MEAN PLATELET VOLUME 6.9 fl (7.4-10.4); MONOCYTES % 5.3 % (2.0-8.0); NEUTROPHILS % 80.2 % (40.0-76.0); PLATELET 454 x1000/uL (130-400); RED CELL DISTRIBUTION WIDTH 20.5 % (11.6-14.6); WHITE BLOOD COUNT 8.9 x1000/uL (4.5-11.0)
[2024-08-29 18:32] LABS: CHLORIDE 101 mEq/L (98-107); SODIUM 139 mEq/L (136-145)
[2024-08-29 18:33] LABS: CARBON DIOXIDE 29 mEq/L (21-32)
[2024-08-29 18:34] LABS: CALCIUM 9.3 mg/dL (8.7-10.4)
[2024-08-29 18:38] LABS: CREATININE 0.8 mg/dL (0.6-1.3); GLUCOSE 149 mg/dL (70-105)
[2024-08-29 18:39] LABS: UREA NITROGEN BLOOD 17 mg/dL (9-23)
[2024-08-29 18:40] LABS: ALANINE AMINOTRANSFERASE 15 IU/L (10-49); ALBUMIN 4.3 g/dL (3.2-4.8); ASPARTATE AMINOTRANSFERASE 20 IU/L (<34)
[2024-08-29] MEDS: ONDANSETRON 4MG ODT PO STA (18:40)
[2024-08-29 18:41] LABS: BILIRUBIN DIRECT < 0.1 mg/dL (<=3.0); BILIRUBIN TOTAL 0.3 mg/dL (0.1-1.0); PROTEIN TOTAL 9.6 g/dL (6.0-8.3)
[2024-08-29] MEDS: SIMETHICONE 80MG TABLET CHEW PO ONE (18:41)
[2024-08-29] MEDS: KETOROLAC 30MG/ML VIAL IV ONE (18:41)
[2024-08-29 18:44] LABS: PROTHROMBIN TIME 11.1 sec (9.6-11.0)
[2024-08-29 19:31] LABS: CLARITY URINE TURBID (CLEAR); COLOR URINE YELLOW (YELLOW)
[2024-08-29 19:32] LABS: GLUCOSE URINE NEGATIVE (NEGATIVE); KETONES URINE NEGATIVE (NEGATIVE); NITRITE URINE NEGATIVE (NEGATIVE); OCCULT BLOOD URINE NEGATIVE (NEGATIVE); PH URINE >=9.0 (4.5-8.0); PROTEIN URINE 2+ (NEGATIVE)
[2024-08-29 19:33] LABS: LEUKOCYTE ESTERASE URINE 2+ (NEGATIVE)
[2024-08-29 19:35] LABS: AMORPHOUS SEDIMENT URINE 4+ /lpf; BACTERIA URINE NONE SEEN; RBC URINE NONE SEEN /hpf (0-2); SQUAMOUS EPITHELIAL CELL URINE NONE SEEN /lpf (RARE/1+); TRIPLE PHOSPHATE CRYSTAL URINE 2+ /lpf; WBC URINE 0-2 /hpf (0-2)
[2024-08-29] MEDS: SODIUM CHLORIDE 0.9% 1,000 ML IV NR (20:43)
[2024-08-29] MEDS: CEFTRIAXONE 1GM/50ML 50 ML IV NR (20:44)
[2024-08-29] MEDS: METRONIDAZOLE 500 MG PREMIX 100 ML IV NR (21:14)
[2024-08-29] MEDS ORDERED: ACETAMINOPHEN 325MG TABLET PO PRN (23:45)
[2024-08-29] MEDS ORDERED: HYDRALAZINE 20MG/ML VIAL IV PRN (23:45)
[2024-08-30] MEDS ORDERED: DEXT 5%/0.9% NACL KCL 20MEQ/L 1,000 ML IV SCH (01:00)
[2024-08-30] MEDS: ONDANSETRON HCL 4MG/2ML INJ IV PRN (01:06)
[2024-08-30] MEDS: MORPHINE SULFATE 2 MG/ML INJ (NOT FOR IM USE) IV PRN (01:06)
[2024-08-30 03:00] VITALS: BP 97/66; PULSE 102; RESP 18; TEMP 36.5
[2024-08-30 04:00] VITALS: BP 97/66; PULSE 102; RESP 18; TEMP 36.5; O2SAT 97
[2024-08-30] MEDS: DEXT 5%/0.9% NACL KCL 20MEQ/L 1,000 ML IV SCH (04:00)
[2024-08-30] MEDS: HYDROCODONE/ACETAMINOPHEN 5/325MG TABLET PO PRN (05:57)
[2024-08-30 08:00] VITALS: BP 117/68; PULSE 91; RESP 20; TEMP 36.6; O2SAT 99
[2024-08-30] MEDS: PANTOPRAZOLE SODIUM 40 MG/VIAL IV SCH (09:54)
[2024-08-30] MEDS: ENOXAPARIN 40MG/0.4ML SYR SUBCUT SCH (09:55)
[2024-08-30 12:00] VITALS: BP 120/76; PULSE 83; RESP 20; TEMP 36.7; O2SAT 98
[2024-08-30] MEDS: VISCOUS LIDOCAINE 2% 15 ML UDC MM PRN (13:05)
[2024-08-30 13:20] LABS: *AMPHETAMINES SCREEN URINE NEGATIVE (NEGATIVE); *BARBITURATES SCREEN URINE NEGATIVE (NEGATIVE); *BENZODIAZEPINES SCREEN URINE NEGATIVE (NEGATIVE); *COCAINE SCREEN URINE NEGATIVE (NEGATIVE); CANNABINOID URINE SCREEN NEGATIVE (NEGATIVE); ECSTASY MDMA SCREEN URINE NEGATIVE (NEGATIVE); METHADONE URINE SCREEN NEGATIVE (NEGATIVE); OPIATES URINE SCREEN PRESUMPTIVE POSITIVE (NEGATIVE); PHENCYCLIDINE URINE SCREEN NEGATIVE (NEGATIVE)
[2024-08-30 16:00] VITALS: BP 123/73; PULSE 79; RESP 18; TEMP 36.8; O2SAT 98
[2024-08-30 20:00] VITALS: BP 136/74; PULSE 69; RESP 18; TEMP 35.9; O2SAT 99
[2024-08-30 22:15] LABS: CHLORIDE 109 mEq/L (98-107); POTASSIUM 5.6 mEq/L (3.5-5.1); SODIUM 140 mEq/L (136-145)
[2024-08-30 22:16] LABS: CARBON DIOXIDE 25 mEq/L (21-32)
[2024-08-30 22:21] LABS: CREATININE 0.7 mg/dL (0.6-1.3); GLUCOSE 117 mg/dL (70-105); UREA NITROGEN BLOOD 21 mg/dL (9-23)
[2024-08-30 22:48] LABS: HEPATITIS B SURFACE ANTIGEN NEGATIVE (Negative)
[2024-08-30 23:09] LABS: HEPATITIS C AB NON REACTIVE (Neg) (Negative)
== END 2024-08-30 22:09 | disposition short-term general hospital (02) | DRG 390 ==
LOC: ER 17:19 → 7EST 21:52 → ENRESERV 23:51
PROVIDERS: ADMIT Internal Medicine; ATTEND Internal Medicine
DX: K56.609 Unspecified intestinal obstruction, unspecified as to partial versus complete obstruction (principal); E78.00 Pure hypercholesterolemia, unspecified; Z93.3 Colostomy status
CPT/HCPCS: 36415; 71045; 74018; 74176; 80048; 80076; 80305; 81003; 85025; 86705; 87340; 99285; A4606; J0696; J1650; J1885; J2270; J2405; J2470; J3490; Q0162

== ENCOUNTER 2024-09-20 13:58 | Inpatient (IN) | payer OTHER ==
[~2024-09-20] VITALS: Ht 175.3 cm; Wt 73.5 kg
[2024-09-20] MEDS: SODIUM CHLORIDE 0.9% (SEPSIS BOLUS) IV ONE (14:44)
[2024-09-20] MEDS: MORPHINE SULFATE 4 MG/ML INJ (FOR IV/IM USE) IV ONE (14:50)
[2024-09-20] MEDS: ONDANSETRON HCL 4MG/2ML INJ IV ONE (14:50)
[2024-09-20] MEDS: VANCOMYCIN 1G PREMIX 200 ML IV ONE (14:56)
[2024-09-20 15:14] LABS: PROTHROMBIN TIME 10.4 sec (9.6-11.0)
[2024-09-20 15:16] LABS: BASOPHILS % 0.2 % (0.0-2.0); CARBON DIOXIDE 21 mEq/L (21-32); CHLORIDE 103 mEq/L (98-107); DIFFERENTIAL COMMENT 0; EOSINOPHILS % 0.4 % (0.0-5.0); HEMATOCRIT. 42.1 % (42.0-52.0); HEMOGLOBIN. 13.5 g/dL (14.0-18.0); LYMPHOCYTES % 14.5 % (20.0-50.0); MEAN CORPUSCULAR HEMOGLOBIN 25.5 pg (28.0-32.0); MEAN CORPUSCULAR VOLUME 79.7 fL (80.0-94.0); MEAN PLATELET VOLUME 7.2 fl (7.4-10.4); MONOCYTES % 5.7 % (2.0-8.0); NEUTROPHILS % 79.2 % (40.0-76.0); PLATELET 417 x1000/uL (130-400); POTASSIUM 4.6 mEq/L (3.5-5.1); RED BLOOD CELL COUNT 5.28 mill/uL (4.7-6.1); RED CELL DISTRIBUTION WIDTH 19.5 % (11.6-14.6); SODIUM 135 mEq/L (136-145); WHITE BLOOD COUNT 9.9 x1000/uL (4.5-11.0)
[2024-09-20 15:17] LABS: CALCIUM 10.1 mg/dL (8.7-10.4)
[2024-09-20 15:21] LABS: CREATININE 1.2 mg/dL (0.6-1.3)
[2024-09-20 15:22] LABS: GLUCOSE 138 mg/dL (70-105); UREA NITROGEN BLOOD 19 mg/dL (9-23)
[2024-09-20 15:23] LABS: ALANINE AMINOTRANSFERASE 10 IU/L (10-49); ALBUMIN 4.9 g/dL (3.2-4.8); ASPARTATE AMINOTRANSFERASE 22 IU/L (<34)
[2024-09-20 15:24] LABS: BILIRUBIN DIRECT 0.1 mg/dL (<=3.0); BILIRUBIN TOTAL 0.4 mg/dL (0.1-1.0); PROTEIN TOTAL 9.5 g/dL (6.0-8.3)
[2024-09-20 15:39] LABS: CLARITY URINE TURBID (CLEAR); COLOR URINE DARK YELLOW (YELLOW); GLUCOSE URINE NEGATIVE (NEGATIVE); KETONES URINE TRACE (NEGATIVE); LEUKOCYTE ESTERASE URINE 3+ (NEGATIVE); NITRITE URINE NEGATIVE (NEGATIVE); OCCULT BLOOD URINE NEGATIVE (NEGATIVE); PROTEIN URINE 2+ (NEGATIVE); SPECIFIC GRAVITY URINE 1.027 (1.005-1.030)
[2024-09-20 15:57] LABS: BACTERIA URINE 4+; RBC URINE 0-2 /hpf (0-2); SQUAMOUS EPITHELIAL CELL URINE FEW /lpf (RARE/1+)
[2024-09-20 15:58] LABS: AMORPHOUS SEDIMENT URINE 1+ /lpf; WBC URINE 25-50 /hpf (0-2)
[2024-09-20 21:00] VITALS: BP 114/68; PULSE 90; RESP 19; TEMP 35.5; O2SAT 98
[2024-09-20] MEDS ORDERED: NALOXONE HCL 0.4MG/ML VIAL IV PRN (21:15)
[2024-09-20] MEDS ORDERED: ONDANSETRON HCL 4MG/2ML INJ IV PRN (21:15)
[2024-09-20] MEDS ORDERED: DEXT 5%/0.45% NACL KCL 20MEQ/L 1,000 ML IV SCH (21:15)
[2024-09-20] MEDS: DEXT 5%/0.45% NACL 1000ML 1,000 ML IV SCH (22:06)
[2024-09-20] MEDS: MORPHINE SULFATE 4 MG/ML INJ (FOR IV/IM USE) IV PRN (22:07)
[2024-09-20 22:39] VITALS: BP 114/68; PULSE 90; RESP 19; TEMP 35.3
[2024-09-21] VITALS: BP 105/61; PULSE 73; RESP 22; TEMP 35.5; O2SAT 99
[2024-09-21 04:00] VITALS: BP 101/64; PULSE 72; RESP 20; TEMP 36.6; O2SAT 98
[2024-09-21 08:00] VITALS: BP 106/68; PULSE 68; RESP 17; TEMP 36.4; O2SAT 99
[2024-09-21 09:45] LABS: DIFFERENTIAL COMMENT 0; EOSINOPHILS % 5.1 % (0.0-5.0); HEMATOCRIT. 33.8 % (42.0-52.0); HEMOGLOBIN. 10.8 g/dL (14.0-18.0); LYMPHOCYTES % 34.2 % (20.0-50.0); MEAN CORPUSCULAR HEMOGLOBIN 25.2 pg (28.0-32.0); MEAN CORPUSCULAR HGB CONC 31.8 g/dL (31.0-37.0); MEAN CORPUSCULAR VOLUME 79.2 fL (80.0-94.0); MEAN PLATELET VOLUME 7.3 fl (7.4-10.4); MONOCYTES % 10.3 % (2.0-8.0); NEUTROPHILS % 49.4 % (40.0-76.0); PLATELET 296 x1000/uL (130-400); RED BLOOD CELL COUNT 4.28 mill/uL (4.7-6.1); RED CELL DISTRIBUTION WIDTH 18.8 % (11.6-14.6); WHITE BLOOD COUNT 4.1 x1000/uL (4.5-11.0)
[2024-09-21 10:25] LABS: CARBON DIOXIDE 23 mEq/L (21-32); CHLORIDE 107 mEq/L (98-107); SODIUM 139 mEq/L (136-145)
[2024-09-21 10:26] LABS: CALCIUM 7.9 mg/dL (8.7-10.4)
[2024-09-21 10:30] LABS: CREATININE 0.6 mg/dL (0.6-1.3)
[2024-09-21 10:31] LABS: GLUCOSE 121 mg/dL (70-105); UREA NITROGEN BLOOD 10 mg/dL (9-23)
[2024-09-21] MEDS: CEFTRIAXONE 1GM/50ML 50 ML IV SCH (11:53)
[2024-09-21 12:00] VITALS: BP 114/66; PULSE 70; RESP 18; TEMP 36.7; O2SAT 98
[2024-09-21 16:00] VITALS: BP 121/64; PULSE 63; RESP 18; TEMP 36.4; O2SAT 98
[2024-09-21 20:00] VITALS: BP 130/77; PULSE 67; RESP 20; TEMP 36.5; O2SAT 99
[2024-09-22] VITALS: BP 140/81; PULSE 61; RESP 20; TEMP 36.6; O2SAT 100
[2024-09-22 04:00] VITALS: BP 121/75; PULSE 56; RESP 20; TEMP 35.8; O2SAT 100
[2024-09-22 08:00] VITALS: BP 128/72; PULSE 55; RESP 17; TEMP 36.3; O2SAT 98
[2024-09-22] MEDS: ENOXAPARIN 40MG/0.4ML SYR SUBCUT SCH (08:32)
[2024-09-22 08:41] LABS: BASOPHILS % 0.8 % (0.0-2.0); DIFFERENTIAL COMMENT 0; EOSINOPHILS % 5.7 % (0.0-5.0); HEMOGLOBIN. 11.6 g/dL (14.0-18.0); MEAN CORPUSCULAR HEMOGLOBIN 24.9 pg (28.0-32.0); MEAN CORPUSCULAR HGB CONC 31.3 g/dL (31.0-37.0); MEAN CORPUSCULAR VOLUME 79.4 fL (80.0-94.0); MEAN PLATELET VOLUME 7.2 fl (7.4-10.4); MONOCYTES % 9.4 % (2.0-8.0); NEUTROPHILS % 41.1 % (40.0-76.0); PLATELET 262 x1000/uL (130-400); RED BLOOD CELL COUNT 4.66 mill/uL (4.7-6.1); RED CELL DISTRIBUTION WIDTH 18.9 % (11.6-14.6); WHITE BLOOD COUNT 3.7 x1000/uL (4.5-11.0)
[2024-09-22 08:58] LABS: CARBON DIOXIDE 24 mEq/L (21-32); CHLORIDE 108 mEq/L (98-107); POTASSIUM 3.7 mEq/L (3.5-5.1); SODIUM 140 mEq/L (136-145)
[2024-09-22 08:59] LABS: CALCIUM 8.8 mg/dL (8.7-10.4)
[2024-09-22 09:04] LABS: CREATININE 0.6 mg/dL (0.6-1.3); GLUCOSE 129 mg/dL (70-105); UREA NITROGEN BLOOD < 5 mg/dL (9-23)
[2024-09-22 12:00] VITALS: BP 153/79; PULSE 63; RESP 17; TEMP 36.6; O2SAT 98
[2024-09-22 16:00] VITALS: BP 121/70; PULSE 70; RESP 18; TEMP 36.4; O2SAT 99
[2024-09-22 17:09] VITALS: BP 121/70; PULSE 70; TEMP 97.5; O2SAT 99
== END 2024-09-22 17:24 | disposition home or self-care (01) | DRG 388 ==
LOC: ER 13:58 → EDBEDREQ 14:27 → EDBEDREQSVC 19:11 → EDBEDREQ 19:11 → ENRESERV 20:04 → 6EST 20:10
PROVIDERS: ADMIT Internal Medicine; ATTEND Internal Medicine
PROC: 0D9670Z Drainage of Stomach with Drainage Device, Via Natural or Artificial Opening (ICD-10-PCS; principal; 2024-09-21)
DX: K56.609 Unspecified intestinal obstruction, unspecified as to partial versus complete obstruction (principal); G82.50 Quadriplegia, unspecified; N39.0 Urinary tract infection, site not specified; K52.9 Noninfective gastroenteritis and colitis, unspecified; D64.9 Anemia, unspecified; L89.229 Pressure ulcer of left hip, unspecified stage; L89.219 Pressure ulcer of right hip, unspecified stage; E78.00 Pure hypercholesterolemia, unspecified; K80.20 Calculus of gallbladder without cholecystitis without obstruction; Z74.01 Bed confinement status; Z93.3 Colostomy status; Z90.49 Acquired absence of other specified parts of digestive tract
CPT/HCPCS: 36415; 74018; 74176; 80048; 80076; 81003; 83605; 84145; 85025; 86850; 86900; 93005; 99291; A4606; J0696; J1650; J2270; J2405; J3370; J7030

== ENCOUNTER 2024-11-10 11:58 | Emergency (ER) | payer OTHER ==
[~2024-11-10] VITALS: Ht 172.7 cm; Wt 90.0 kg
[~2024-11-10 11:58] MED LIST changes: -CEPH500C2 MT; -IBUP-2029 MT
[2024-11-10 12:01] VITALS: O2SAT 98
[2024-11-10 14:31] LABS: CLARITY URINE TURBID (CLEAR); COLOR URINE YELLOW (YELLOW); GLUCOSE URINE NEGATIVE (NEGATIVE); KETONES URINE NEGATIVE (NEGATIVE); LEUKOCYTE ESTERASE URINE 3+ (NEGATIVE); NITRITE URINE POSITIVE (NEGATIVE); OCCULT BLOOD URINE 3+ (NEGATIVE); PH URINE 6.5 (4.5-8.0); PROTEIN URINE 1+ (NEGATIVE); SPECIFIC GRAVITY URINE 1.013 (1.005-1.030); UROBILINOGEN URINE 0.2 E.U./dL (0.2-1.0)
[2024-11-10 15:45] LABS: RBC URINE 15-25 /hpf (0-2); WBC URINE 25-50 /hpf (0-2)
[2024-11-10 15:46] LABS: BACTERIA URINE 4+; SQUAMOUS EPITHELIAL CELL URINE FEW /lpf (RARE/1+)
[2024-11-10] MEDS ORDERED: CEFTRIAXONE 1GM/50ML 50 ML IV ONE (16:00)
[2024-11-10 16:22] LABS: TRIPLE PHOSPHATE CRYSTAL URINE 1+ /lpf
[2024-11-10] MEDS: CEFTRIAXONE 1GM/50ML 50 ML IV SCH (17:15)
[2024-11-10] MEDS: SODIUM CHLORIDE 0.9% 500 ML IV ONE (17:16)
[2024-11-10] MEDS: HYDROCODONE/ACETAMINOPHEN 5/325MG TABLET PO ONE (17:52)
[2024-11-10 18:01] VITALS: BP 125/71; PULSE 69; RESP 17; TEMP 36.7; O2SAT 99
== END 2024-11-10 18:37 | disposition short-term general hospital (02) ==
LOC: ER 12:08
DX: N39.0 Urinary tract infection, site not specified (principal); Z86.73 Personal history of transient ischemic attack (TIA), and cerebral infarction without residual deficits; Z98.890 Other specified postprocedural states; Z79.899 Other long term (current) drug therapy
CPT/HCPCS: 81003; 87086; 87186; 87077; 96365; 99285; J0696; J7040; Z7610 ×2; A4606

== ENCOUNTER 2024-11-16 01:15 | Emergency (ER) | payer OTHER ==
[~2024-11-16] VITALS: Ht 175.3 cm; Wt 86.0 kg
[2024-11-16 01:22] VITALS: O2SAT 100
[2024-11-16 02:32] LABS: BASOPHILS % 0.4 % (0.0-2.0); EOSINOPHILS % 4.5 % (0.0-5.0); HEMATOCRIT. 37.8 % (42.0-52.0); HEMOGLOBIN. 11.9 g/dL (14.0-18.0); LYMPHOCYTES % 25.9 % (20.0-50.0); MEAN PLATELET VOLUME 7.0 fl (7.4-10.4); MONOCYTES % 8.5 % (2.0-8.0); NEUTROPHILS % 60.7 % (40.0-76.0); PLATELET 387 x1000/uL (130-400); RED BLOOD CELL COUNT 4.74 mill/uL (4.7-6.1); RED CELL DISTRIBUTION WIDTH 17.4 % (11.6-14.6)
[2024-11-16 02:35] LABS: CREATININE 0.8 mg/dL (0.6-1.3); UREA NITROGEN BLOOD 12 mg/dL (9-23)
[2024-11-16 02:36] LABS: ETHANOL BLOOD < 10 mg/dL (<10)
[2024-11-16 02:37] LABS: ASPARTATE AMINOTRANSFERASE 19 IU/L (<34); BILIRUBIN DIRECT 0.1 mg/dL (<=3.0)
[2024-11-16 02:38] LABS: BILIRUBIN TOTAL 0.4 mg/dL (0.1-1.0); PROTEIN TOTAL 8.3 g/dL (6.0-8.3)
[2024-11-16] MEDS: KETOROLAC 15MG/ML VIAL IV SCH (04:50)
[2024-11-16] MEDS: SODIUM CHLORIDE 0.9% 1,000 ML IV ONE (04:50)
[2024-11-16] MEDS ORDERED: ONDA4TAB50 MT (06:33)
[2024-11-16] MEDS ORDERED: IBUP-2029 MT (06:33)
[2024-11-16 07:58] VITALS: BP 139/86; PULSE 72; RESP 19; TEMP 36.6; O2SAT 100
== END 2024-11-16 08:07 | disposition home or self-care (01) ==
LOC: ER 01:15 → CMPBEDREQ 08:36
DX: K52.9 Noninfective gastroenteritis and colitis, unspecified (principal); G82.20 Paraplegia, unspecified; Z93.3 Colostomy status
CPT/HCPCS: 80076; 80048; 80320; 83690; 85025; 36415; 71045; 74176; 96361; 96374; 99285; J1885; G0480

== ENCOUNTER 2025-01-27 03:40 | Inpatient (IN) | payer OTHER ==
[~2025-01-27] VITALS: Ht 175.3 cm; Wt 68.0 kg
[~2025-01-27 03:40] MED LIST changes: +IBUP-1455 MT; +ONDA4TAB50 MT
[2025-01-27 03:49] VITALS: O2SAT 99
[2025-01-27] MEDS: MORPHINE SULFATE 4 MG/ML INJ (FOR IV/IM USE) IV ONE (04:25)
[2025-01-27] MEDS: ONDANSETRON HCL 4MG/2ML INJ IV ONE (04:26)
[2025-01-27 04:47] LABS: BASOPHILS % 0.7 % (0.0-2.0); EOSINOPHILS % 0.4 % (0.0-5.0); LYMPHOCYTES % 9.5 % (20.0-50.0); MEAN PLATELET VOLUME 6.7 fl (7.4-10.4); MONOCYTES % 5.2 % (2.0-8.0); NEUTROPHILS % 84.2 % (40.0-76.0); PLATELET 849 x1000/uL (130-400); RED BLOOD CELL COUNT 2.89 mill/uL (4.7-6.1); RED CELL DISTRIBUTION WIDTH 20.6 % (11.6-14.6)
[2025-01-27 05:03] LABS: INR 1.0
[2025-01-27 05:04] LABS: HEMOGLOBIN. 5.6 g/dL (14.0-18.0)
[2025-01-27 05:05] LABS: ADD RBC MORPHOLOGY YES; HEMATOCRIT. 19.3 % (42.0-52.0)
[2025-01-27 05:06] LABS: CREATININE 0.8 mg/dL (0.6-1.3); UREA NITROGEN BLOOD 19 mg/dL (9-23)
[2025-01-27 05:07] LABS: TROPONIN I HIGH SENSITIVITY < 4 ng/L (3.0-53)
[2025-01-27 05:08] LABS: ASPARTATE AMINOTRANSFERASE 19 IU/L (<34); BILIRUBIN DIRECT 0.2 mg/dL (<=3.0); BILIRUBIN TOTAL 0.5 mg/dL (0.1-1.0); PROTEIN TOTAL 9.6 g/dL (6.0-8.3)
[2025-01-27 05:31] LABS: PLATELET ESTIMATE INCREASED
[2025-01-27] MEDS: IOHEXOL-300 100 ML BOTTLE ONE (06:03)
[2025-01-27] MEDS: MORPHINE SULFATE 4 MG/ML INJ (FOR IV/IM USE) IV NR (09:54)
[2025-01-27] MEDS ORDERED: ONDANSETRON HCL 4MG/2ML INJ IV PRN (11:00)
[2025-01-27] MEDS: SODIUM CHLORIDE 0.9% 1,000 ML IV SCH (11:00)
[2025-01-27] MEDS ORDERED: DIPHENHYDRAMINE 50MG/ML VIAL IV PRN (11:00)
[2025-01-27] MEDS: KCL 20MEQ/100ML PREMIX 100 ML IV SCH (11:00)
[2025-01-27] MEDS ORDERED: MORPHINE SULFATE 4 MG/ML INJ (FOR IV/IM USE) IV PRN (11:00)
[2025-01-27] MEDS ORDERED: ACETAMINOPHEN 325MG TABLET PO PRN ×2 (11:00)
[2025-01-27] MEDS: PANTOPRAZOLE SODIUM 40 MG/VIAL IV SCH (11:00)
[2025-01-27] MEDS: MEROPENEM 1G/100ML 100 ML IV SCH ×2 (13:00→22:00)
[2025-01-27 13:56] VITALS: BP 126/69; PULSE 72; RESP 18; TEMP 37.0852
[2025-01-27] MEDS ORDERED: ATOR10TA69 MT (15:21)
[2025-01-27 16:00] VITALS: BP 110/60; PULSE 58; RESP 18; TEMP 36.1; O2SAT 100
[2025-01-27 20:00] VITALS: BP 104/68; PULSE 82; RESP 18; TEMP 36.8; O2SAT 98
[2025-01-27] MEDS ORDERED: NALOXONE HCL 0.4MG/ML VIAL IV PRN (20:00)
[2025-01-28] VITALS: BP 106/61; PULSE 76; RESP 20; TEMP 37; O2SAT 98
[2025-01-28 04:00] VITALS: BP 110/53; PULSE 75; RESP 20; TEMP 36.7; O2SAT 98
[2025-01-28] MEDS ORDERED: LIDOCAINE HCL 1% 10 MG/ML 10ML VIAL ONE (07:13)
[2025-01-28 08:00] VITALS: BP 100/60; PULSE 68; RESP 20; TEMP 36.3; O2SAT 97
[2025-01-28] MEDS: HYDROMORPHONE HCL/PF 2MG/ML INJ IV PRN (08:57)
[2025-01-28 09:05] LABS: BASOPHILS % 0.3 % (0.0-2.0); EOSINOPHILS % 0.2 % (0.0-5.0); HEMATOCRIT. 27.4 % (42.0-52.0); HEMOGLOBIN. 8.2 g/dL (14.0-18.0); LYMPHOCYTES % 12.0 % (20.0-50.0); MEAN PLATELET VOLUME 7.1 fl (7.4-10.4); MONOCYTES % 8.1 % (2.0-8.0); NEUTROPHILS % 79.4 % (40.0-76.0); PLATELET 670 x1000/uL (130-400); RED BLOOD CELL COUNT 3.86 mill/uL (4.7-6.1); RED CELL DISTRIBUTION WIDTH 20.0 % (11.6-14.6)
[2025-01-28 09:39] LABS: FOLIC ACID (FOLATE) SERUM 14.47 ng/mL (>5.38)
[2025-01-28 09:44] LABS: VITAMIN B12 SERUM 934 pg/mL (211-911)
[2025-01-28 09:48] LABS: CREATININE 0.7 mg/dL (0.6-1.3); UREA NITROGEN BLOOD 19 mg/dL (9-23)
[2025-01-28 09:51] LABS: PHOSPHORUS 3.1 mg/dL (2.5-4.9)
[2025-01-28 12:00] VITALS: BP 110/54; PULSE 75; RESP 20; TEMP 37; O2SAT 95
[2025-01-28] MEDS ORDERED: NON FORMULARY MED XX SCH (15:15)
[2025-01-28 16:00] VITALS: BP 97/55; PULSE 79; RESP 18; TEMP 36.5; O2SAT 95
[2025-01-28] MEDS: IRON SUCROSE COMPLEX 100 MG/5 ML ML IV SCH (16:09)
[2025-01-28 19:33] LABS: CLARITY URINE TURBID (CLEAR); GLUCOSE URINE NEGATIVE (NEGATIVE); KETONES URINE NEGATIVE (NEGATIVE); LEUKOCYTE ESTERASE URINE 3+ (NEGATIVE); NITRITE URINE NEGATIVE (NEGATIVE); OCCULT BLOOD URINE NEGATIVE (NEGATIVE); PH URINE >=9.0 (4.5-8.0); PROTEIN URINE 4+ (NEGATIVE); SPECIFIC GRAVITY URINE 1.052 (1.005-1.030); UROBILINOGEN URINE 1.0 E.U./dL (0.2-1.0)
[2025-01-28 19:53] LABS: *AMPHETAMINES SCREEN URINE NEGATIVE (NEGATIVE); *BARBITURATES SCREEN URINE NEGATIVE (NEGATIVE); *BENZODIAZEPINES SCREEN URINE NEGATIVE (NEGATIVE); *COCAINE SCREEN URINE NEGATIVE (NEGATIVE); CANNABINOID URINE SCREEN NEGATIVE (NEGATIVE); ECSTASY MDMA SCREEN URINE NEGATIVE (NEGATIVE); METHADONE URINE SCREEN NEGATIVE (NEGATIVE); OPIATES URINE SCREEN PRESUMPTIVE POSITIVE (NEGATIVE); PHENCYCLIDINE URINE SCREEN NEGATIVE (NEGATIVE)
[2025-01-28 20:00] VITALS: BP 103/63; PULSE 73; RESP 18; TEMP 36.1; O2SAT 98
[2025-01-28 20:11] LABS: COLOR URINE YELLOW (YELLOW)
[2025-01-28 20:12] LABS: BACTERIA URINE 3+; RBC URINE NONE SEEN /hpf (0-2); SQUAMOUS EPITHELIAL CELL URINE RARE /lpf (RARE/1+)
[2025-01-28 20:13] LABS: AMORPHOUS SEDIMENT URINE 3+ /lpf; MUCUS URINE 1+ /lpf (NONE/TRACE); RENAL EPITHELIAL CELLS URINE 1+ /lpf; TRIPLE PHOSPHATE CRYSTAL URINE 3+ /lpf
[2025-01-29] VITALS: BP 100/60; PULSE 65; RESP 18; TEMP 36.1; O2SAT 98
[2025-01-29 04:00] VITALS: BP 100/60; PULSE 62; RESP 19; TEMP 36.6; O2SAT 98
[2025-01-29 08:00] VITALS: BP 105/59; PULSE 59; RESP 18; TEMP 36.6; O2SAT 100
[2025-01-29] MEDS: DIATR MEGLU/DIATRIZOATE SOLN 30ML PO SCH (10:32)
[2025-01-29 12:00] VITALS: BP 115/57; PULSE 71; RESP 18; TEMP 36.6; O2SAT 100
[2025-01-29] MEDS ORDERED: IOHEXOL-300 100 ML BOTTLE ONE (14:42)
[2025-01-29 16:00] VITALS: BP 108/49; PULSE 69; RESP 18; TEMP 36.5; O2SAT 99
[2025-01-29 20:00] VITALS: BP 100/50; PULSE 77; RESP 18; TEMP 36.9; O2SAT 98
[2025-01-29 21:57] LABS: BASOPHILS % 0.7 % (0.0-2.0); EOSINOPHILS % 1.5 % (0.0-5.0); HEMATOCRIT. 23.4 % (42.0-52.0); LYMPHOCYTES % 19.9 % (20.0-50.0); MEAN PLATELET VOLUME 6.8 fl (7.4-10.4); MONOCYTES % 10.9 % (2.0-8.0); NEUTROPHILS % 67.0 % (40.0-76.0); PLATELET 484 x1000/uL (130-400); RED BLOOD CELL COUNT 3.21 mill/uL (4.7-6.1); RED CELL DISTRIBUTION WIDTH 20.9 % (11.6-14.6)
[2025-01-29 22:02] LABS: HEMOGLOBIN. 6.9 g/dL (14.0-18.0)
[2025-01-29 22:04] LABS: CREATININE 0.5 mg/dL (0.6-1.3)
[2025-01-29 22:05] LABS: UREA NITROGEN BLOOD 12 mg/dL (9-23)
[2025-01-30] VITALS (10 sets, daily range): BP systolic 86–128; BP diastolic 48–67; PULSE 62–72; RESP 18–20; TEMP 36.33624–36.8; O2SAT 96–100
[2025-01-30] MEDS: POTASSIUM CHLORIDE 20MEQ TABLET SR PO NR (05:40)
[2025-01-30 07:48] LABS: PLATELET 436 x1000/uL (130-400); RED BLOOD CELL COUNT 3.42 mill/uL (4.7-6.1); RED CELL DISTRIBUTION WIDTH 22.1 % (11.6-14.6)
[2025-01-30 11:38] LABS: CREATININE 0.5 mg/dL (0.6-1.3); UREA NITROGEN BLOOD 8 mg/dL (9-23)
[2025-01-30] MEDS ORDERED: CEFEPIME 1GM/50ML 50 ML IV SCH (21:00)
== END 2025-01-30 19:20 | disposition short-term general hospital (02) | DRG 372 ==
LOC: ER 03:40 → 8WST 06:34 → EDBEDREQ 08:43 → EDBEDREQTM 08:43 → ENRESERV 11:50
PROVIDERS: ADMIT Internal Medicine; ATTEND Internal Medicine
PROC: 30233N1 Transfusion of Nonautologous Red Blood Cells into Peripheral Vein, Percutaneous Approach (ICD-10-PCS; principal; 2025-01-27)
PROC: 02HV33Z Insertion of Infusion Device into Superior Vena Cava, Percutaneous Approach (ICD-10-PCS; 2025-01-28)
PROC: B548ZZA Ultrasonography of Superior Vena Cava, Guidance (ICD-10-PCS; 2025-01-28)
DX: A04.72 Enterocolitis due to Clostridium difficile, not specified as recurrent (principal); G82.20 Paraplegia, unspecified; N39.0 Urinary tract infection, site not specified; K92.2 Gastrointestinal hemorrhage, unspecified; D50.9 Iron deficiency anemia, unspecified; K80.20 Calculus of gallbladder without cholecystitis without obstruction; E87.6 Hypokalemia; L89.159 Pressure ulcer of sacral region, unspecified stage; D75.839 Thrombocytosis, unspecified; I10 Essential (primary) hypertension; Z87.19 Personal history of other diseases of the digestive system; Z93.3 Colostomy status; Z93.59 Other cystostomy status; Z87.11 Personal history of peptic ulcer disease
CPT/HCPCS: 36415; 71045; 71260; 74018; 74177; 77001; 80048; 80076; 80305; 80320; 81003; 82270; 82607; 82728; 82746; 83540; 83550; 83735; 83880; 84100; 84484; 85025; 85027; 85044; 86850; 86900; 86920; 87015; 87045; 87077; 87177; 87186; 87209; 87427; 87449; 87493; 89055; 99285; C1752; J0692; J1171; J2003; J2185; J2270; J2405; J2470; J3480; P9016; Q9963; Q9967; G0480

== ENCOUNTER 2025-03-24 09:11 | Emergency (ER) | payer OTHER ==
[~2025-03-24] VITALS: Ht 182.9 cm; Wt 81.0 kg
[~2025-03-24 09:11] MED LIST changes: +ATOR10TA69 MT
[2025-03-24 09:14] VITALS: O2SAT 100
[2025-03-24 11:53] LABS: BASOPHILS % 0.9 % (0.0-2.0); EOSINOPHILS % 3.9 % (0.0-5.0); HEMATOCRIT. 33.9 % (42.0-52.0); HEMOGLOBIN. 10.8 g/dL (14.0-18.0); LYMPHOCYTES % 44.7 % (20.0-50.0); MEAN PLATELET VOLUME 6.7 fl (7.4-10.4); MONOCYTES % 11.4 % (2.0-8.0); NEUTROPHILS % 39.1 % (40.0-76.0); PLATELET 369 x1000/uL (130-400); RED BLOOD CELL COUNT 4.10 mill/uL (4.7-6.1); RED CELL DISTRIBUTION WIDTH 24.0 % (11.6-14.6)
[2025-03-24 11:54] LABS: CLARITY URINE TURBID (CLEAR); COLOR URINE YELLOW (YELLOW); GLUCOSE URINE NEGATIVE (NEGATIVE); KETONES URINE NEGATIVE (NEGATIVE); LEUKOCYTE ESTERASE URINE 3+ (NEGATIVE); NITRITE URINE NEGATIVE (NEGATIVE); OCCULT BLOOD URINE NEGATIVE (NEGATIVE); PH URINE >=9.0 (4.5-8.0); PROTEIN URINE 1+ (NEGATIVE); SPECIFIC GRAVITY URINE 1.013 (1.005-1.030); UROBILINOGEN URINE 0.2 E.U./dL (0.2-1.0)
[2025-03-24 11:57] LABS: ADD RBC MORPHOLOGY YES
[2025-03-24 12:01] LABS: CREATININE 0.5 mg/dL (0.6-1.3); UREA NITROGEN BLOOD 6 mg/dL (9-23)
[2025-03-24 12:01] LABS: BACTERIA URINE 3+; RBC URINE 0-2 /hpf (0-2); SQUAMOUS EPITHELIAL CELL URINE 1+ /lpf (RARE/1+); TRIPLE PHOSPHATE CRYSTAL URINE 4+ /lpf; YEAST URINE NONE SEEN
[2025-03-24] MEDS: CEFTRIAXONE 1GM/50ML 50 ML IV ONE (13:49)
[2025-03-24] MEDS: KETOROLAC 15MG/ML VIAL IV ONE (13:50)
[2025-03-24 14:06] LABS: PLATELET ESTIMATE NORMAL
[2025-03-24] MEDS ORDERED: CLONIDINE 0.1MG TABLET PO PRN (14:45)
[2025-03-24] MEDS ORDERED: ONDANSETRON HCL 4MG/2ML INJ IV PRN (14:45)
[2025-03-24] MEDS ORDERED: CEFEPIME 1GM IN DEXT 5% 50ML IV SCH (14:45)
[2025-03-24] MEDS ORDERED: IPRATROPIUM/ALBUTEROL 0.5-3(2.5)MG/3ML NEB HHN PRN (14:45)
[2025-03-24] MEDS ORDERED: ACETAMINOPHEN 325MG TABLET PO PRN ×2 (14:45)
[2025-03-24] MEDS ORDERED: DOCUSATE SODIUM 100MG CAPSULE PO PRN (14:45)
[2025-03-24 15:20] VITALS: BP 110/57; PULSE 71; RESP 18; TEMP 36.9; O2SAT 100
[2025-03-24] MEDS ORDERED: CEFEPIME 2GM/100ML 100 ML IV SCH (16:00)
[2025-03-24] MEDS ORDERED: ENOXAPARIN 40MG/0.4ML SYR SUBCUT SCH (16:00)
[2025-03-25] MEDS ORDERED: ATORVASTATIN CALCIUM 10MG TABLET PO SCH (09:00)
== END 2025-03-24 15:30 | disposition short-term general hospital (02) ==
LOC: ER 09:11 → CANBEDREQ 13:35 → ER 15:30
DX: T83.010A Breakdown (mechanical) of cystostomy catheter, initial encounter (principal); N39.0 Urinary tract infection, site not specified; Z79.899 Other long term (current) drug therapy; W34.00XA Accidental discharge from unspecified firearms or gun, initial encounter; Y93.89 Activity, other specified; Y92.89 Other specified places as the place of occurrence of the external cause; Y99.8 Other external cause status
CPT/HCPCS: 80048; 81003; 85025; 87086; 36415; 96365; 96375; 99285; J0696; J1885; Z7610; 96374; J0692